=== PATIENT | male | born 1970 | race Two or more races ===

== ENCOUNTER 2020-05-08 15:23 | Inpatient (IN) | payer MEDICAID ==
[~2020-05-08] VITALS: Ht 172.7 cm; Wt 72.4 kg
[~2020-05-08 15:23] MED LIST: HUMALOG; INSLANTI SC; Insulin Detemir SC; METF-371 PO; MULTTAB99 PO
[2020-05-08] MEDS ORDERED: PANTOPRAZOLE 40 MG/10 ML VIAL INJ IV ONE (15:30)
[2020-05-08] MEDS ORDERED: SODIUM CHLORIDE 0.9% 1,000 ML IV ONE ×2 (15:30)
[2020-05-08 15:55] LABS: Basophils # (auto) 0.1 10 ^3/uL (0-0.2); Basophils % (auto) 0.3 % (0.0-2.0); Eosinophils # (auto) 0 10 ^3/uL (0-0.8); Hematocrit 36.4 % (41.0-53.0); Hemoglobin 11.9 g/dL (13.5-17.5); Lymphocytes % (auto) 3.6 % (10.0-50.0); Mean Corpuscular Hemoglobin 31.1 pg (28.0-32.0); Mean Corpuscular Hgb Conc. 32.8 g/dL (32.0-36.0); Mean Corpuscular Volume 94.7 fL (80.0-100.0); Monocytes # (auto) 1.3 10 ^3/uL (0-1.3); Monocytes % (auto) 4.9 % (0.0-12.0); Neutrophils # (auto) 24.4 10 ^3/uL (1.6-8.6); Neutrophils % (auto) 91.2 % (37.0-80.0); Platelet Count (auto) 383 10^3/uL (140-450); Red Blood Cells 3.85 10^6/uL (4.5-5.90); Red Cell Distribution Width 13.8 % (11.8-14.3); White Blood Cell 26.8 10^3/uL (4.4-10.8)
[2020-05-08 16:15] LABS: Albumin 3.4 g/dL (3.4-5.0); Anion Gap 36 (5-15); Blood Alcohol < 3.0 mg/dL (0-5); Calcium 8.5 mg/dL (8.5-10.1); Carbon Dioxide 14 mmol/L (21-32); Chloride 77 mmol/L (98-107); Magnesium 2.8 mg/dL (1.6-2.6); Sodium 127 mmol/L (136-145)
[2020-05-08] MEDS ORDERED: PIPERACILLIN-TAZOB 3.375GM 100 ML IV ONE ×2 (16:15→17:00)
[2020-05-08 16:17] LABS: INR 0.99 (0.9-1.15); Partial Thromboplastin Time 23.9 sec (23.0-31.2)
[2020-05-08 16:23] LABS: Alanine Aminotransferase 31 U/L (16-61); Alkaline Phosphatase 104 U/L (45-117); Aspartate Aminotransferase 19 U/L (15-37); GFR African American 28 mL/min; GFR Non-African American 23 mL/min; Total Protein 6.8 g/dL (6.4-8.2)
[2020-05-08 16:36] LABS: Glucose 765 mg/dL (74-106); Potassium 5.6 mmol/L (3.5-5.1)
[2020-05-08 16:37] LABS: BUN/Creatinine Ratio 32.7; Blood Urea Nitrogen 101 mg/dL (7-18)
[2020-05-08] MEDS ORDERED: DEXTROSE (50%) 50ML SYRG IV ONE (16:45)
[2020-05-08] MEDS ORDERED: SODIUM BICARBONATE 8.4% INJ 50ML SYRINGE IV ONE ×2 (16:45→17:00)
[2020-05-08] MEDS ORDERED: DEXTROSE (50%) 50ML SYRG IV PRN ×2 (16:45→17:00)
[2020-05-08] MEDS ORDERED: SODIUM CHLORIDE 0.9% 1,000 ML IV SCH ×5 (16:45→22:45)
[2020-05-08] MEDS ORDERED: CALCIUM GLUC 4.65meq/50ml D5AE 50 ML IV ONE ×2 (16:45→17:00)
[2020-05-08] MEDS ORDERED: InsuLIN REG 1unit/0.01ml Soln (100units/ml) IV ONE (16:45)
[2020-05-08] MEDS ORDERED: ALBUTEROL SULF 2.5 MG/0.5ML(0.5%) NEB SOLN NEB ONE ×2 (16:45→17:00)
[2020-05-08] MEDS ORDERED: SODIUM ZIRCONIUM CYCL 10 GM PAK PO ONE ×2 (16:45→17:00)
[2020-05-08] MEDS ORDERED: INSULIN LANTUS (GLARGINE) 1 /0.01ml (100units/ml) SC ONE ×2 (16:45→17:00)
[2020-05-08] MEDS ORDERED: InsuLIN R (HUMAN) 100 UNITS in SODIUM CHL 0.9% 99 ML IV SCH ×2 (16:45→17:00)
[2020-05-08] MEDS ORDERED: FUROSEMIDE 20 MG/2 ML VIAL IV ONE (16:45)
[2020-05-08] MEDS ORDERED: TEMAZEPAM 15 MG CAP PO PRN (17:00)
[2020-05-08] MEDS ORDERED: ONDANSETRON HCL 4 MG/2 ML VIAL IV PRN (17:00)
[2020-05-08] MEDS ORDERED: DOCUSATE SOD 100 MG CAP PO PRN (17:00)
[2020-05-08] MEDS ORDERED: NITROGLYCERIN 0.4 MG SL TAB SL PRN ×2 (17:00→19:30)
[2020-05-08] MEDS ORDERED: MORPHINE SULF INJ 2 MG/ML SYRINGE 1ML IV PRN ×3 (17:00→19:30)
[2020-05-08] MEDS: SODIUM CHLORIDE 0.9% 1,000 ML IV SCH ×3 (17:22→23:12)
[2020-05-08 17:32] LABS: Calcium 8.4 mg/dL (8.5-10.1); Magnesium 2.4 mg/dL (1.6-2.6)
[2020-05-08 17:34] LABS: Lactic Acid w/Reflex 2.4 mmol/L (0.4-2.0)
[2020-05-08 17:41] LABS: BUN/Creatinine Ratio 35.1; Phosphorus 6.5 mg/dL (2.5-4.90)
[2020-05-08] MEDS ORDERED: ACCU-CHEK COMFORT CURVE STRIP VI SCH (18:00)
[2020-05-08] MEDS: ACCU-CHEK COMFORT CURVE STRIP VI SCH ×4 (18:04→22:40)
[2020-05-08 18:09] LABS: Potassium 6.6 mmol/L (3.5-5.1)
[2020-05-08] MEDS ORDERED: SODIUM BICARBONATE 8.4 % INJ 50ML VIAL IV ONE (18:45)
[2020-05-08 19:01] LABS: Urine Bacteria NONE SEEN /hpf (None Seen); Urine Blood Negative /uL (Negative); Urine Hyaline Cast FEW /lpf (0 - 2); Urine Specific Gravity 1.014 (1.001-1.035); Urine WBC <1 /hpf (0 - 3)
[2020-05-08 19:19] LABS: Alcohol, Urine < 3.0 mg/dL (0-10); Amphetamine Screen, Urine NEGATIVE (NEGATIVE); Barbiturate Scree,Urine NEGATIVE (NEGATIVE); Benzodiazephine Screen, Urine NEGATIVE (NEGATIVE); Cannabinoid Screen, Urine NEGATIVE (NEGATIVE); Cocaine Screen, Urine NEGATIVE (NEGATIVE); Opiate Scree,Urine NEGATIVE (NEGATIVE); Phencyclidine Screen, Urine NEGATIVE (NEGATIVE)
[2020-05-08] MEDS ORDERED: METOCLOPRAMIDE HCL 5MG/ml INJ 2ml VIAL IV PRN (19:30)
[2020-05-08] MEDS ORDERED: ACETAMINOPHEN 325 MG TAB PO PRN (19:30)
[2020-05-08] MEDS ORDERED: dilTIAZem 125mg/125ml BAG KIT 125 ML IV SCH (19:30)
[2020-05-08] MEDS ORDERED: ALUM & MAG HYDROX-SIMETH LIQ(MAALOX) 30 ML PO PRN (19:30)
[2020-05-08] MEDS: ASCORBIC ACID 500 MG TAB PO SCH (21:55)
[2020-05-08] MEDS: PANTOPRAZOLE 40 MG/10 ML VIAL INJ IV SCH (21:55)
[2020-05-08] MEDS ORDERED: FAMOTIDINE 20 MG TAB PO SCH (22:00)
[2020-05-08 22:55] LABS: Calcium 7.6 mg/dL (8.5-10.1); Potassium 3.5 mmol/L (3.5-5.1)
[2020-05-08 23:15] LABS: BUN/Creatinine Ratio 36.6
[2020-05-09] MEDS: ACCU-CHEK COMFORT CURVE STRIP VI SCH ×11 (00:19→18:16)
[2020-05-09] MEDS: PIPERACILLIN-TAZOB 2.25GM 50 ML IV SCH ×4 (00:55→18:26)
[2020-05-09 06:30] LABS: Basophils # (auto) 0 10 ^3/uL (0-0.2); Basophils % (auto) 0.1 % (0.0-2.0); Eosinophils # (auto) 0 10 ^3/uL (0-0.8); Hematocrit 27.2 % (41.0-53.0); Hemoglobin 9.6 g/dL (13.5-17.5); Lymphocytes # (auto) 0.9 10 ^3/uL (0.4-5.4); Lymphocytes % (auto) 3.7 % (10.0-50.0); Mean Corpuscular Hemoglobin 31.8 pg (28.0-32.0); Mean Corpuscular Hgb Conc. 35.5 g/dL (32.0-36.0); Mean Corpuscular Volume 89.5 fL (80.0-100.0); Monocytes # (auto) 2.5 10 ^3/uL (0-1.3); Monocytes % (auto) 10.1 % (0.0-12.0); Neutrophils # (auto) 21.3 10 ^3/uL (1.6-8.6); Neutrophils % (auto) 86.1 % (37.0-80.0); Platelet Count (auto) 276 10^3/uL (140-450); Red Blood Cells 3.04 10^6/uL (4.5-5.90); Red Cell Distribution Width 13.3 % (11.8-14.3); White Blood Cell 24.8 10^3/uL (4.4-10.8)
[2020-05-09 06:46] LABS: BUN/Creatinine Ratio 39.4; Calcium 7.5 mg/dL (8.5-10.1)
[2020-05-09 06:49] LABS: Bilirubin, Total 0.4 mg/dL (0.2-1.0); Total Protein 5.5 g/dL (6.4-8.2)
[2020-05-09 06:51] LABS: Cholesterol 113 mg/dL (< 200)
[2020-05-09 06:53] LABS: HDL Cholesterol 42 mg/dL (40-59); LDL Cholesterol 56 mg/dL (< 100); Triglycerides 131 mg/dL (< 150)
[2020-05-09] MEDS: SODIUM CHLORIDE 0.9% 1,000 ML IV SCH (07:06)
[2020-05-09] MEDS ORDERED: DEXTROSE (50%) 50ML SYRG IV PRN (08:00)
[2020-05-09] MEDS ORDERED: InsuLIN REG 1unit/0.01ml Soln (100units/ml) SC SCH (08:00)
[2020-05-09] MEDS: METOPROLOL TARTRATE 25 MG TAB PO SCH ×3 (09:29→21:42)
[2020-05-09] MEDS ORDERED: SOD CHL 0.45% 1,000 ML IV SCH (09:30)
[2020-05-09] MEDS: POTASSIUM CHL 20MEQ/100ML 100 ML IV SCH ×2 (09:30→12:32)
[2020-05-09] MEDS: ASCORBIC ACID 500 MG TAB PO SCH (09:37)
[2020-05-09] MEDS: PANTOPRAZOLE 40 MG/10 ML VIAL INJ IV SCH ×2 (09:37→21:42)
[2020-05-09] MEDS ORDERED: ZINC SULFATE 220mg CAP or TAB PO SCH (10:00)
[2020-05-09] MEDS ORDERED: INSULIN LANTUS (GLARGINE) 1 /0.01ml (100units/ml) SC SCH ×2 (10:00)
[2020-05-09 10:55] VITALS: BP 128/84
[2020-05-09 13:00] VITALS: BP 115/66
[2020-05-09 13:29] LABS: Potassium 3.5 mmol/L (3.5-5.1)
[2020-05-09 13:35] LABS: BUN/Creatinine Ratio 37.4; Calcium 7.4 mg/dL (8.5-10.1)
[2020-05-09] MEDS: SOD CHL 0.9%/ KCL 20MEQ 1,000 ML IV SCH (14:47)
[2020-05-09 17:00] VITALS: BP 129/65
[2020-05-09] MEDS: InsuLIN REG 1unit/0.01ml Soln (100units/ml) SC SCH (18:18)
[2020-05-09 19:28] LABS: BUN/Creatinine Ratio 29.9; Calcium 7.3 mg/dL (8.5-10.1); Potassium 3.5 mmol/L (3.5-5.1)
[2020-05-09] MEDS: INSULIN LANTUS (GLARGINE) 1 /0.01ml (100units/ml) SC SCH (21:59)
[2020-05-09] MEDS: HYDROcodone-ACET 5/325MG TAB PO PRN (21:59)
[2020-05-09 22:00] VITALS: BP 102/55
[2020-05-10] MEDS: SOD CHL 0.9%/ KCL 20MEQ 1,000 ML IV SCH ×2 (00:30→11:56)
[2020-05-10 05:00] VITALS: BP 110/65
[2020-05-10] MEDS: InsuLIN REG 1unit/0.01ml Soln (100units/ml) SC SCH ×3 (06:00→11:56)
[2020-05-10] MEDS: ACCU-CHEK COMFORT CURVE STRIP VI SCH ×3 (06:22→11:57)
[2020-05-10] MEDS: PIPERACILLIN-TAZOB 2.25GM 50 ML IV SCH ×3 (06:23→11:56)
[2020-05-10 06:32] LABS: Basophils # (auto) 0 10 ^3/uL (0-0.2); Basophils % (auto) 0.1 % (0.0-2.0); Eosinophils # (auto) 0 10 ^3/uL (0-0.8); Lymphocytes # (auto) 1.5 10 ^3/uL (0.4-5.4); Monocytes # (auto) 1.1 10 ^3/uL (0-1.3); Neutrophils # (auto) 8.7 10 ^3/uL (1.6-8.6); Nucleated Red Blood Cells % 0.1 %
[2020-05-10 06:37] LABS: Eosinophils % (auto) 0.1 % (0.0-7.0); Hematocrit 23.3 % (41.0-53.0); Hemoglobin 8.4 g/dL (13.5-17.5); Lymphocytes % (auto) 13.1 % (10.0-50.0); Mean Corpuscular Hemoglobin 32.7 pg (28.0-32.0); Mean Corpuscular Hgb Conc. 36.1 g/dL (32.0-36.0); Mean Corpuscular Volume 90.8 fL (80.0-100.0); Monocytes % (auto) 9.4 % (0.0-12.0); Neutrophils % (auto) 77.3 % (37.0-80.0); Platelet Count (auto) 214 10^3/uL (140-450); Red Blood Cells 2.56 10^6/uL (4.5-5.90); Red Cell Distribution Width 13.5 % (11.8-14.3); White Blood Cell 11.3 10^3/uL (4.4-10.8)
[2020-05-10 06:38] LABS: Calcium 7.8 mg/dL (8.5-10.1); Potassium 3.4 mmol/L (3.5-5.1)
[2020-05-10 06:39] LABS: INR 0.97 (0.9-1.15); Partial Thromboplastin Time 23.2 sec (23.0-31.2)
[2020-05-10 06:40] LABS: BUN/Creatinine Ratio 21.9
[2020-05-10 08:15] VITALS: BP 123/73
[2020-05-10 09:00] VITALS: BP 128/73
[2020-05-10] MEDS: INSULIN LANTUS (GLARGINE) 1 /0.01ml (100units/ml) SC SCH (10:00)
[2020-05-10] MEDS ORDERED: LIDOCAINE 2% (LOCAL ANESTH.) PF 5ml SDV ONE (10:38)
[2020-05-10] MEDS ORDERED: PROPOFOL 10 MG/ML 20 ML IV ONE (10:38)
[2020-05-10] MEDS ORDERED: HYDROmorphone HCL 2 MG/ML VL IV PRN (11:00)
[2020-05-10] MEDS ORDERED: hydrALAZINE HCL 20 MG/ML VL IV PRN (11:00)
[2020-05-10] MEDS ORDERED: LABETALOL HCL 5 MG/ML 4ML SYRINGE IV PRN (11:00)
[2020-05-10] MEDS ORDERED: ONDANSETRON HCL 4 MG/2 ML VIAL IV PRN (11:00)
[2020-05-10] MEDS: METOPROLOL TARTRATE 25 MG TAB PO SCH (11:56)
[2020-05-10] MEDS: HYDROcodone-ACET 5/325MG TAB PO PRN (12:15)
[2020-05-10 13:00] VITALS: BP 122/75
[2020-05-10] MEDS ORDERED: INSLANTI SC (14:38)
[2020-05-10] MEDS ORDERED: INSREGI SC (14:38)
[2020-05-10] MEDS ORDERED: MET25T PO (14:38)
[2020-05-10] MEDS ORDERED: PANT40TA2 PO (14:39)
[2020-05-10 15:03] VITALS: BP 122/75
[2020-05-10 16:42] VITALS: BP 113/70
[2020-05-10] MEDS ORDERED: PANTOPRAZOLE 40 MG TAB PO SCH (22:00)
== END 2020-05-10 16:30 | disposition home health service (06) | DRG 241 ==
LOC: ER 15:23 → EDBD 15:23 → TELE 16:47 → TELE-WESTW 05-09 10:33
PROVIDERS: ADMIT Emergency Medicine; ATTEND Internal Medicine
PROC: 0DJ08ZZ Inspection of Upper Intestinal Tract, Via Natural or Artificial Opening Endoscopic (ICD-10-PCS; principal; 2020-05-10 10:29)
DX: K29.71 Gastritis, unspecified, with bleeding (principal); K20.91 Esophagitis, unspecified with bleeding; E11.10 Type 2 diabetes mellitus with ketoacidosis without coma; E87.5 Hyperkalemia; E78.5 Hyperlipidemia, unspecified; E83.39 Other disorders of phosphorus metabolism; E86.0 Dehydration; E87.0 Hyperosmolality and hypernatremia; E87.1 Hypo-osmolality and hyponatremia; E87.6 Hypokalemia; F15.10 Other stimulant abuse, uncomplicated; F17.210 Nicotine dependence, cigarettes, uncomplicated; K44.9 Diaphragmatic hernia without obstruction or gangrene; N17.9 Acute kidney failure, unspecified; R57.9 Shock, unspecified; Z79.4 Long term (current) use of insulin; Z82.49 Family history of ischemic heart disease and other diseases of the circulatory system; Z83.3 Family history of diabetes mellitus; Z86.39 Personal history of other endocrine, nutritional and metabolic disease; Z20.822 Contact with and (suspected) exposure to COVID-19; R65.10 Systemic inflammatory response syndrome (SIRS) of non-infectious origin without acute organ dysfunction; I10 Essential (primary) hypertension
CPT/HCPCS: 36415; 36600; 43235; 71045; 74176; 80048; 80053; 80061; 80307; 80320; 81001; 82010; 82805; 82962; 83036; 83605; 83735; 83880; 83930; 84100; 84484; 85025; 85610; 85730; 86850; 86900; 86901; 87040; 87426; 93005; 93306; 94640; 96361; 96365; 96375; C9113; G0378; J0610; J1815; J2001; J2405; J2543; J2704; J3480

== ENCOUNTER 2023-07-12 11:09 | Inpatient (IN) | payer MEDICAID ==
[~2023-07-12] VITALS: Ht 175.3 cm; Wt 97.2 kg
[~2023-07-12 11:09] MED LIST changes: -HUMALOG; +INSREGI SC; -Insulin Detemir SC; +MET25T PO; -METF-371 PO; +PANT40TA2 PO
[2023-07-12] MEDS: SODIUM CHLORIDE 0.9% 1,000 ML IV ONE (11:30)
[2023-07-12] MEDS ORDERED: OCTREOTIDE ACETATE 500 MCG in SODIUM CHL 0.9% 99 ML IV SCH (11:30)
[2023-07-12] MEDS ORDERED: PANTOPRAZOLE 40mg/50ML NS AE 50 ML IV ONE (11:30)
[2023-07-12 11:46] LABS: Hematocrit 42.9 % (41.0-53.0); Hemoglobin 13.9 g/dL (13.5-17.5); Mean Corpuscular Hemoglobin 28.9 pg (28.0-32.0); Mean Corpuscular Hgb Conc. 32.5 g/dL (32.0-36.0); Red Blood Cells 4.82 10^6/uL (4.5-5.90); Red Cell Distribution Width 13.6 % (11.8-14.3)
[2023-07-12 11:58] LABS: White Blood Cell 30.6 10^3/uL (4.4-10.8)
[2023-07-12 12:00] LABS: Basophils % (manual) 0 (0.0-2.0); Blast Cells 0; Eosinophils % (manual) 0 (0-7); INR 1.03 (0.9-1.15); Metamyelocytes % 0; Myelocytes % 0; Partial Thromboplastin Time 23.5 SEC (24.5-34.5); Promyelocytes % 0; Prothrombin Time 10.9 sec (9.3-11.8); Reactive Lymphocytes 0
[2023-07-12 12:05] LABS: Acetaminophen < 2.0 UG/ML (10.0-20.0); Alanine Aminotransferase 19 U/L (7-40); Alkaline Phosphatase 99 U/L (46-116); Anion Gap 16 (5-15); Aspartate Aminotransferase 23 U/L (13-40); BUN/Creatinine Ratio 12.1 (10.0-20.0); Blood Alcohol < 3.0 mg/dL (<10); Blood Urea Nitrogen 38 mg/dL (9-23); Calcium 10.3 mg/dL (8.5-10.1); Carbon Dioxide 21 mmol/L (20-30); Chloride 100 mmol/L (98-107); Glucose 133 mg/dL (74-106); Potassium 4.1 mmol/L (3.5-5.1); Sodium 137 mmol/L (136-145)
[2023-07-12 12:06] LABS: Bilirubin, Total 0.5 mg/dL (0.2-1.0); Salicylate < 3.0 mg/dL (2.8-20.0); Total Protein 7.7 g/dL (5.7-8.2)
[2023-07-12 12:13] LABS: Band Neutrophils % (manual) 1; Lymphocytes % (manual) 5 (10.0-50.0); Monocytes % (manual) 6 (0-12); Smudge Cells 2 /100 WBC
[2023-07-12 12:13] LABS: Base Excess -5.6 mmol/L (-2.0-2.0)
[2023-07-12 12:14] LABS: Giant Platelets Few; Platelet Estimate Adequate
[2023-07-12 12:36] LABS: Lipase 1446 U/L (12-53)
[2023-07-12 13:15] VITALS: PULSE 93; RESP 16; O2SAT 98
[2023-07-12] MEDS ORDERED: NITROGLYCERIN 0.4 MG SL TAB SL PRN (13:30)
[2023-07-12] MEDS: OCTREOTIDE ACETATE 500 MCG in SODIUM CHL 0.9% 99 ML IV SCH (13:30)
[2023-07-12] MEDS ORDERED: DEXTROSE (50%) 50ML SYRG IV PRN ×3 (13:30→17:15)
[2023-07-12] MEDS: ACCU-CHEK COMFORT CURVE STRIP VI SCH ×2 (13:30→18:00)
[2023-07-12] MEDS ORDERED: DOCUSATE SOD 100 MG CAP PO PRN (13:30)
[2023-07-12] MEDS ORDERED: ACCU-CHEK COMFORT CURVE STRIP VI SCH (13:30)
[2023-07-12] MEDS: ONDANSETRON HCL 4 MG/2 ML VIAL IV ONE (13:57)
[2023-07-12] MEDS: PANTOPRAZOLE 80 MG in SODIUM CHL 0.9% 100 ML IV ONE (13:57)
[2023-07-12] MEDS ORDERED: VANCOMYCIN PER PHARMACY 0 MG IV SCH (14:00)
[2023-07-12] MEDS ORDERED: CEFEPIME 2GM/50ML NS 50 ML IV SCH (14:00)
[2023-07-12 14:19] LABS: Phosphorus 3.2 mg/dL (2.4-5.1)
[2023-07-12] MEDS: OCTREOTIDE ACETATE 100 MCG in SODIUM CHL 0.9% 50 ML IV ONE (14:19)
[2023-07-12] MEDS: MORPHINE SULFATE INJ 2 MG/ml SYRG IV PRN (14:30)
[2023-07-12] MEDS: VANCOMYCIN 1GM/200ML 200 ML IV ONE (14:43)
[2023-07-12] MEDS: PANTOPRAZOLE 40mg/50ML NS AE 50 ML IV SCH (14:57)
[2023-07-12] MEDS: hydrALAZINE HCL 20 MG/ML VL IV ONE (15:16)
[2023-07-12 15:28] LABS: Chloride 99 mmol/L (98-107); Sodium 136 mmol/L (136-145)
[2023-07-12 15:29] LABS: Anion Gap 20 (5-15); Carbon Dioxide 17 mmol/L (20-30)
[2023-07-12 15:30] LABS: Calcium 10.2 mg/dL (8.7-10.4)
[2023-07-12 15:34] LABS: Glucose 136 mg/dL (74-106)
[2023-07-12 15:36] LABS: INR 1.04 (0.9-1.15)
[2023-07-12 15:41] LABS: Blood Urea Nitrogen 52 mg/dL (9-23)
[2023-07-12] MEDS: SODIUM CHLORIDE 0.9% 2,000 ML IV ONE (16:15)
[2023-07-12] MEDS: PIPERACILLIN-TAZO 4.5GM 100 ML IV ONE (16:44)
[2023-07-12] MEDS: SODIUM CHLORIDE 0.9% 1,000 ML IV SCH ×3 (17:30→19:30)
[2023-07-12] MEDS: INSULIN DRIP 100 UNIT/100ML 100 ML IV SCH (18:39)
[2023-07-12] MEDS: HYDROmorphone HCL 2 MG/ML VL/or syr IV ONE (18:40)
[2023-07-12] MEDS: LORazepam 2MG/ML-1ML VIAL IV ONE (18:55)
[2023-07-12] MEDS: METOCLOPRAMIDE HCL 5MG/ml INJ 2ml VIAL IV ONE (18:57)
[2023-07-12 18:59] LABS: Hematocrit 40.1 % (41.0-53.0); Hemoglobin 12.7 g/dL (13.5-17.5)
[2023-07-12 19:26] LABS: Chloride 101 mmol/L (98-107); Potassium 4.8 mmol/L (3.5-5.1); Sodium 134 mmol/L (136-145)
[2023-07-12 19:27] LABS: Anion Gap 21 (5-15); Calcium 8.8 mg/dL (8.5-10.1); Carbon Dioxide 12 mmol/L (20-30)
[2023-07-12 19:30] VITALS: PULSE 109; RESP 16; O2SAT 96
[2023-07-12 19:32] LABS: BUN/Creatinine Ratio 14.3 (10.0-20.0)
[2023-07-12 19:38] LABS: Blood Urea Nitrogen 39 mg/dL (9-23); Glucose 383 mg/dL (74-106)
[2023-07-12] MEDS ORDERED: PIPERACILLIN-TAZOB 3.375GM 100 ML IV SCH (22:00)
[2023-07-12] MEDS: hydrALAZINE HCL 20 MG/ML VL IV PRN (22:09)
[2023-07-12 22:47] LABS: Base Excess -6.7 mmol/L (-2.0-2.0)
[2023-07-12 23:25] LABS: Urine Bacteria None Seen /hpf (None Seen)
[2023-07-12 23:42] LABS: Urine Blood Negative /uL (Negative); Urine Clarity Clear (Clear); Urine Color Light-Yellow (Yellow); Urine Mucus FEW (None Seen); Urine Protein, UAD TRACE (Negative); Urine Specific Gravity 1.022 (1.001-1.035); Urine Urobilinogen Normal (Negative); Urine WBC 1 /hpf (0 - 3)
[2023-07-12] MEDS: CEFEPIME 2GM/50ML NS 50 ML IV SCH (23:42)
[2023-07-13] VITALS (14 sets, daily range): BP systolic 148–173; BP diastolic 85–111; PULSE 91–106; RESP 12–21; TEMP 97.2–99.2; O2SAT 94–100
[2023-07-13] MEDS: METOCLOPRAMIDE HCL 5MG/ml INJ 2ml VIAL IV SCH
[2023-07-13 00:24] LABS: Hematocrit 38.6 % (41.0-53.0); Hemoglobin 12.7 g/dL (13.5-17.5)
[2023-07-13] MEDS ORDERED: LORazepam 2MG/ML-1ML VIAL IV PRN (00:30)
[2023-07-13 01:31] LABS: Protein, Urine 27.7 mg/dL (0.0-11.9)
[2023-07-13 01:32] LABS: Amphetamine Screen, Urine Neg (NEGATIVE); Barbiturate Scree,Urine Neg (NEGATIVE); Benzodiazephine Screen, Urine Neg (NEGATIVE); Cocaine Screen, Urine Neg (NEGATIVE); Opiate Scree,Urine Neg (NEGATIVE)
[2023-07-13 01:33] LABS: Cannabinoid Screen, Urine Pos (NEGATIVE); Creatinine, Urine 78.82 mg/dL (30.0-125.0); Phencyclidine Screen, Urine Neg (NEGATIVE)
[2023-07-13 01:39] LABS: Chloride 108 mmol/L (98-107); Potassium 4.2 mmol/L (3.5-5.1); Sodium 138 mmol/L (136-145)
[2023-07-13 01:40] LABS: Anion Gap 11 (5-15); Calcium 8.2 mg/dL (8.7-10.4); Carbon Dioxide 19 mmol/L (20-30)
[2023-07-13 01:45] LABS: BUN/Creatinine Ratio 15.7 (10.0-20.0); Blood Urea Nitrogen 31 mg/dL (9-23)
[2023-07-13 01:46] LABS: Glucose 195 mg/dL (74-106)
[2023-07-13 04:12] LABS: Basophils # (auto) 0.2 10 ^3/uL (0-0.2); Basophils % (auto) 0.8 % (0.0-2.0); Eosinophils # (auto) 0 10 ^3/uL (0-0.8); Eosinophils % (auto) 0.1 % (0.0-7.0); Hematocrit 37.6 % (41.0-53.0); Hemoglobin 12.4 g/dL (13.5-17.5); Lymphocytes # (auto) 0.5 10 ^3/uL (0.4-5.4); Lymphocytes % (auto) 2.3 % (10.0-50.0); Mean Corpuscular Hemoglobin 29.3 pg (28.0-32.0); Mean Corpuscular Hgb Conc. 33.1 g/dL (32.0-36.0); Mean Corpuscular Volume 88.6 fL (80.0-100.0); Monocytes # (auto) 1.2 10 ^3/uL (0-1.3); Monocytes % (auto) 5.3 % (0.0-12.0); Neutrophils # (auto) 21.3 10 ^3/uL (1.6-8.6); Neutrophils % (auto) 91.5 % (37.0-80.0); Red Blood Cells 4.24 10^6/uL (4.5-5.90); Red Cell Distribution Width 13.6 % (11.8-14.3); White Blood Cell 23.3 10^3/uL (4.4-10.8)
[2023-07-13] MEDS: ONDANSETRON HCL 4 MG/2 ML VIAL IV PRN (04:19)
[2023-07-13 04:36] LABS: Alanine Aminotransferase 17 U/L (7-40); Albumin 3.8 g/dL (3.2-4.8); Alkaline Phosphatase 84 U/L (46-116); Anion Gap 9 (5-15); Aspartate Aminotransferase 20 U/L (13-40); BUN/Creatinine Ratio 16.6 (10.0-20.0); Bilirubin, Total 0.4 mg/dL (0.2-1.0); Blood Urea Nitrogen 29 mg/dL (9-23); Calcium 8.3 mg/dL (8.7-10.4); Carbon Dioxide 21 mmol/L (20-30); Chloride 109 mmol/L (98-107); Glucose 173 mg/dL (74-106); Lipase 418 U/L (12-53); Sodium 139 mmol/L (136-145); Total Protein 6.2 g/dL (5.7-8.2)
[2023-07-13 07:27] LABS: Anion Gap 10 (5-15); Carbon Dioxide 24 mmol/L (20-30); Chloride 107 mmol/L (98-107); Potassium 4.2 mmol/L (3.5-5.1); Sodium 141 mmol/L (136-145)
[2023-07-13 07:28] LABS: Calcium 8.9 mg/dL (8.5-10.1)
[2023-07-13 07:33] LABS: Glucose 188 mg/dL (74-106)
[2023-07-13 07:34] LABS: BUN/Creatinine Ratio 15.3 (10.0-20.0); Blood Urea Nitrogen 27 mg/dL (9-23)
[2023-07-13 10:00] LABS: Hemoglobin 11.9 g/dL (13.5-17.5)
[2023-07-13] MEDS: HYDROmorphone HCL 2 MG/ML VL/or syr IV PRN (10:33)
[2023-07-13] MEDS: VANCOMYCIN 1GM/200ML 200 ML IV SCH (10:36)
[2023-07-13] MEDS ORDERED: D5W/SOD CHL 0.45% 1,000 ML IV SCH (13:15)
[2023-07-13] MEDS ORDERED: DEXTROSE (50%) 50ML SYRG IV PRN ×3 (13:15→16:15)
[2023-07-13] MEDS ORDERED: MIDAZOLAM HCL 2MG/2ML 2ml VIAL (1mg/ml) ONE (14:27)
[2023-07-13] MEDS ORDERED: PROPOFOL 10 MG/ML 20 ML IV ONE (14:39)
[2023-07-13] MEDS: ONDANSETRON HCL 4 MG/2 ML VIAL IV ONE (15:00)
[2023-07-13] MEDS: InsuLIN REG 1unit/0.01ml Soln (100units/ml) SC ONE (15:45)
[2023-07-13] MEDS: InsuLIN REG 1unit/0.01ml Soln (100units/ml) SC SCH (16:00)
[2023-07-13] MEDS: SOD CHL 0.45% 1,000 ML IV SCH (16:38)
[2023-07-13] MEDS: SUCRALFATE 1 GM/10 ML ORAL SUSP PO SCH (16:38)
[2023-07-13 16:48] LABS: Hemoglobin 12.5 g/dL (13.5-17.5)
[2023-07-13] MEDS ORDERED: ACCU-CHEK COMFORT CURVE STRIP VI SCH ×2 (17:00→18:00)
[2023-07-13] MEDS ORDERED: InsuLIN REG 1unit/0.01ml Soln (100units/ml) SC SCH ×3 (17:00→22:00)
[2023-07-13] MEDS: INSULIN LANTUS (GLARGINE) 1 /0.01ml (100units/ml) SC ONE (17:44)
[2023-07-13] MEDS: ACCU-CHEK COMFORT CURVE STRIP VI SCH (19:55)
[2023-07-13] MEDS: INSULIN LANTUS (GLARGINE) 1 /0.01ml (100units/ml) SC SCH (21:59)
[2023-07-13] MEDS: PANTOPRAZOLE 40 MG/10 ML VIAL INJ IV SCH (21:59)
[2023-07-13] MEDS ORDERED: INSULIN LANTUS (GLARGINE) 1 /0.01ml (100units/ml) SC SCH (22:00)
[2023-07-13 22:08] LABS: Hemoglobin 12.3 g/dL (13.5-17.5)
[2023-07-14] VITALS (9 sets, daily range): BP systolic 157–164; BP diastolic 85–89; PULSE 79–98; RESP 10–16; TEMP 98.4–99.1; O2SAT 95–98
[2023-07-14 05:16] LABS: Chloride 104 mmol/L (98-107); Potassium 3.5 mmol/L (3.5-5.1)
[2023-07-14 05:17] LABS: Anion Gap 6 (5-15); Calcium 8.3 mg/dL (8.7-10.4); Carbon Dioxide 25 mmol/L (20-30)
[2023-07-14 05:22] LABS: BUN/Creatinine Ratio 15.5 (10.0-20.0); Blood Urea Nitrogen 16 mg/dL (9-23); Glucose 161 mg/dL (74-106)
[2023-07-14 05:31] LABS: Sodium 135 mmol/L (136-145)
[2023-07-14] MEDS ORDERED: PANTOPRAZOLE 40 MG/10 ML VIAL INJ IV SCH (10:00)
[2023-07-14] MEDS ORDERED: PANT40TA2 PO ×2 (11:33→16:29)
[2023-07-14] MEDS ORDERED: SUCR1TAB31 OR (11:33)
[2023-07-14] MEDS ORDERED: HYDR-4902 PO (11:33)
[2023-07-14] MEDS ORDERED: OXCA600T3 PO (16:29)
[2023-07-14] MEDS ORDERED: FERR325T20 PO (16:29)
[2023-07-14] MEDS ORDERED: AMLO1TAB22 PO (16:29)
[2023-07-14] MEDS ORDERED: ASPI81CH59 PO (16:29)
[2023-07-14] MEDS ORDERED: FENO145T27 OR (16:29)
[2023-07-14] MEDS ORDERED: MIRT-94 PO (16:29)
[2023-07-14] MEDS ORDERED: SIMV20TA20 PO (16:29)
[2023-07-14] MEDS ORDERED: DOCU-94 PO (16:29)
[2023-07-14] MEDS ORDERED: QUET100T47 PO (16:29)
[2023-07-14] MEDS ORDERED: CYCL-839 PO (16:29)
[2023-07-14] MEDS ORDERED: GABA-339 PO (16:29)
[2023-07-14] MEDS: amLODIPine BESYLATE 5 MG TAB PO ONE (18:28)
[2023-07-14] MEDS: METOPROLOL TARTRATE 25 MG TAB PO ONE (18:28)
[2023-07-14] MEDS ORDERED: CEFEPIME 2GM/50ML NS 50 ML IV SCH (20:00)
[2023-07-14] MEDS ORDERED: METOPROLOL TARTRATE 25 MG TAB PO SCH (22:00)
[2023-07-15] MEDS ORDERED: amLODIPine BESYLATE 5 MG TAB PO SCH (10:00)
== END 2023-07-14 18:47 | disposition home or self-care (01) | DRG 282 ==
LOC: ER 11:09 → EDBD 11:09 → OVERFLOW 13:41 → DOU IN ICU 07-13 07:55 → TELE-EAST 07-14 08:49
PROVIDERS: ADMIT Nurse Practitioner Family; ATTEND Internal Medicine
PROC: 0DB68ZX Excision of Stomach, Via Natural or Artificial Opening Endoscopic, Diagnostic (ICD-10-PCS; 2023-07-13)
PROC: 0DB58ZX Excision of Esophagus, Via Natural or Artificial Opening Endoscopic, Diagnostic (ICD-10-PCS; 2023-07-13)
PROC: 0DB98ZX Excision of Duodenum, Via Natural or Artificial Opening Endoscopic, Diagnostic (ICD-10-PCS; principal; 2023-07-13 14:26)
DX: K85.90 Acute pancreatitis without necrosis or infection, unspecified (principal); N17.0 Acute kidney failure with tubular necrosis; K22.11 Ulcer of esophagus with bleeding; E11.10 Type 2 diabetes mellitus with ketoacidosis without coma; E11.22 Type 2 diabetes mellitus with diabetic chronic kidney disease; R65.10 Systemic inflammatory response syndrome (SIRS) of non-infectious origin without acute organ dysfunction; K29.71 Gastritis, unspecified, with bleeding; E86.0 Dehydration; F17.210 Nicotine dependence, cigarettes, uncomplicated; I12.9 Hypertensive chronic kidney disease with stage 1 through stage 4 chronic kidney disease, or unspecified chronic kidney disease; K31.9 Disease of stomach and duodenum, unspecified; K44.9 Diaphragmatic hernia without obstruction or gangrene; N18.31 Chronic kidney disease, stage 3a; Z96.41 Presence of insulin pump (external) (internal); Z82.49 Family history of ischemic heart disease and other diseases of the circulatory system; Z79.4 Long term (current) use of insulin
CPT/HCPCS: 36415; 36600; 70450; 71045; 74176; 80048; 80053; 80307; 80320; 80329; 81001; 82010; 82570; 82805; 82962; 83605; 83690; 83735; 83880; 83930; 84100; 84156; 84300; 84484; 85007; 85014; 85018; 85025; 85027; 85610; 85730; 86850; 86900; 86901; 87040; 87081; 93005; 99291; C9113; G0378; J0692; J1815; J2250; J2405; J2543; J2704

== ENCOUNTER 2023-11-15 12:23 | Inpatient (IN) | payer MEDICAID ==
[~2023-11-15] VITALS: Ht 175.3 cm; Wt 107.2 kg
[~2023-11-15 12:23] MED LIST changes: +AMLO1TAB22 PO; +ASPI81CH59 PO; +CYCL-839 PO; +DOCU-94 PO; +FENO145T27 OR; +FERR325T20 PO; +GABA-339 PO; +HYDR-4902 PO; +MIRT-94 PO; +OXCA600T3 PO; +QUET100T47 PO; +SIMV20TA20 PO; +SUCR1TAB31 OR
[2023-11-15 14:09] LABS: Alanine Aminotransferase 17 U/L (7-40); Albumin 4.7 g/dL (3.2-4.8); Alkaline Phosphatase 135 U/L (46-116); Anion Gap 8 (5-15); Aspartate Aminotransferase 11 U/L (13-40); BUN/Creatinine Ratio 14.9 (10.0-20.0); Blood Urea Nitrogen 20 mg/dL (9-23); Calcium 9.6 mg/dL (8.7-10.4); Carbon Dioxide 27 mmol/L (20-30); Chloride 99 mmol/L (98-107); Glucose 342 mg/dL (74-106); Potassium 4.8 mmol/L (3.5-5.1); Sodium 134 mmol/L (136-145)
[2023-11-15 14:10] LABS: Bilirubin, Total 0.3 mg/dL (0.2-1.0)
[2023-11-15 14:17] LABS: CRP High Sensitivity 4.88 mg/dL (<1.0)
[2023-11-15 14:30] LABS: Erythrocyte Sedimentation Rate 19 mm/hr (0-20)
[2023-11-15 14:57] LABS: Basophils # (auto) 0 10 ^3/uL (0-0.2); Basophils % (auto) 0.4 % (0.0-2.0); Eosinophils # (auto) 0.1 10 ^3/uL (0-0.8); Eosinophils % (auto) 0.7 % (0.0-7.0); Hematocrit 43.2 % (41.0-53.0); Hemoglobin 14.7 g/dL (13.5-17.5); Lymphocytes # (auto) 1.2 10 ^3/uL (0.4-5.4); Lymphocytes % (auto) 9.8 % (10.0-50.0); Mean Corpuscular Hemoglobin 30.4 pg (28.0-32.0); Mean Corpuscular Hgb Conc. 34.1 g/dL (32.0-36.0); Mean Corpuscular Volume 89.2 fL (80.0-100.0); Monocytes % (auto) 8.4 % (0.0-12.0); Neutrophils # (auto) 9.5 10 ^3/uL (1.6-8.6); Neutrophils % (auto) 80.7 % (37.0-80.0); Nucleated Red Blood Cells % 0.1 %; Platelet Count (auto) 393 10^3/uL (140-450); Red Blood Cells 4.85 10^6/uL (4.5-5.90); Red Cell Distribution Width 13.3 % (11.8-14.3); White Blood Cell 11.8 10^3/uL (4.4-10.8)
[2023-11-15] MEDS ORDERED: VANCOMYCIN PER PHARMACY 0 MG IV SCH ×2 (15:00→19:15)
[2023-11-15] MEDS: PIPERACILLIN-TAZOB 3.375GM 100 ML IV ONE (15:00)
[2023-11-15] MEDS: VANCOMYCIN 1GM/200ML 200 ML IV SCH (18:01)
[2023-11-15] MEDS: HYDROcodone-ACET 5/325MG TAB PO ONE (18:27)
[2023-11-15] MEDS ORDERED: ACETAMINOPHEN 325 MG TAB PO PRN (19:15)
[2023-11-15] MEDS ORDERED: NITROGLYCERIN 0.4 MG SL TAB SL PRN (19:15)
[2023-11-15] MEDS ORDERED: ONDANSETRON HCL 4 MG/2 ML VIAL IV PRN (19:15)
[2023-11-15] MEDS ORDERED: DEXTROSE (50%) 50ML SYRG IV PRN (19:15)
[2023-11-15] MEDS ORDERED: hydrALAZINE HCL 20 MG/ML VL IV PRN (19:15)
[2023-11-15] MEDS ORDERED: MORPHINE SULFATE INJ 2 MG/ml SYRG IV PRN (19:15)
[2023-11-15] MEDS ORDERED: VANCOMYCIN 1GM/200ML 200 ML IV SCH (20:00)
[2023-11-15] MEDS: InsuLIN REG 1unit/0.01ml Soln (100units/ml) SC SCH (20:00)
[2023-11-15] MEDS: SODIUM CHLORIDE 0.9% 1,000 ML IV SCH (20:07)
[2023-11-15] MEDS: ACCU-CHEK COMFORT CURVE STRIP VI SCH (20:10)
[2023-11-15] MEDS: amLODIPine BESYLATE 5 MG TAB PO ONE (20:14)
[2023-11-15 20:20] VITALS: PULSE 88; RESP 16; O2SAT 95
[2023-11-15] MEDS: ASCORBIC ACID 500 MG TAB PO SCH (22:17)
[2023-11-15] MEDS: ATORVASTATIN 20 MG TAB PO SCH (22:17)
[2023-11-15] MEDS: PIPERACILLIN-TAZOB 3.375GM 100 ML IV SCH (22:17)
[2023-11-16] VITALS (9 sets, daily range): BP systolic 137–164; BP diastolic 85–104; PULSE 77–88; RESP 16–22; TEMP 97.5–98.4; O2SAT 96–99
[2023-11-16] MEDS: MORPHINE SULFATE INJ 2 MG/ml SYRG IV PRN (01:59)
[2023-11-16] MEDS: VANCOMYCIN 1GM/200ML 200 ML IV SCH (05:36)
[2023-11-16 06:49] LABS: Basophils # (auto) 0.1 10 ^3/uL (0-0.2); Basophils % (auto) 0.8 % (0.0-2.0); Eosinophils # (auto) 0.2 10 ^3/uL (0-0.8); Eosinophils % (auto) 2.9 % (0.0-7.0); Hematocrit 39.8 % (41.0-53.0); Hemoglobin 13.6 g/dL (13.5-17.5); Lymphocytes # (auto) 1.3 10 ^3/uL (0.4-5.4); Lymphocytes % (auto) 17.7 % (10.0-50.0); Mean Corpuscular Hemoglobin 30.4 pg (28.0-32.0); Mean Corpuscular Hgb Conc. 34.2 g/dL (32.0-36.0); Mean Corpuscular Volume 88.7 fL (80.0-100.0); Monocytes # (auto) 0.9 10 ^3/uL (0-1.3); Monocytes % (auto) 12.6 % (0.0-12.0); Neutrophils # (auto) 4.7 10 ^3/uL (1.6-8.6); Platelet Count (auto) 350 10^3/uL (140-450); Red Blood Cells 4.49 10^6/uL (4.5-5.90); Red Cell Distribution Width 13.3 % (11.8-14.3); White Blood Cell 7.1 10^3/uL (4.4-10.8)
[2023-11-16 07:04] LABS: Alanine Aminotransferase 13 U/L (7-40); Alkaline Phosphatase 109 U/L (46-116); Anion Gap 5 (5-15); Blood Urea Nitrogen 16 mg/dL (9-23); Calcium 9.3 mg/dL (8.7-10.4); Carbon Dioxide 29 mmol/L (20-30); Chloride 102 mmol/L (98-107); Potassium 3.7 mmol/L (3.5-5.1); Sodium 136 mmol/L (136-145)
[2023-11-16 07:05] LABS: Albumin 4.1 g/dL (3.2-4.8); Aspartate Aminotransferase 10 U/L (13-40); Bilirubin, Total 0.3 mg/dL (0.2-1.0); Total Protein 6.5 g/dL (5.7-8.2)
[2023-11-16 07:08] LABS: Glucose 145 mg/dL (74-106)
[2023-11-16] MEDS ORDERED: ENOXAPARIN SOD 40 MG/0.4 ML SYRINGE SC SCH (10:00)
[2023-11-16] MEDS: amLODIPine BESYLATE 5 MG TAB PO SCH (11:12)
[2023-11-16] MEDS: HYDROcodone-ACET 5/325MG TAB PO PRN (11:13)
[2023-11-16] MEDS: ASPirin 81 mg TAB PO SCH (11:13)
[2023-11-16] MEDS: ZINC SULFATE 220mg CAP or TAB PO SCH (11:13)
[2023-11-16] MEDS: LOSARTAN POTASSIUM 25 MG TAB PO ONE (14:22)
[2023-11-16] MEDS: METOPROLOL TARTRATE 25 MG TAB PO ONE (14:22)
[2023-11-16] MEDS: CEFEPIME 1GM/ 50ML 50 ML IV ONE (14:22)
[2023-11-16] MEDS: CEFEPIME 1GM/ 50ML 50 ML IV SCH (21:41)
[2023-11-16] MEDS: METOPROLOL TARTRATE 25 MG TAB PO SCH (21:41)
[2023-11-16] MEDS: SODIUM CHLORIDE 0.9% 1,000 ML IV SCH (21:58)
[2023-11-16] MEDS ORDERED: CARVEDILOL 3.125 MG TAB PO SCH (22:00)
[2023-11-17] VITALS (8 sets, daily range): BP systolic 128–151; BP diastolic 81–95; PULSE 72–99; RESP 12–18; TEMP 97.7–98.3; O2SAT 92–100
[2023-11-17 05:38] LABS: Basophils # (auto) 0.1 10 ^3/uL (0-0.2); Eosinophils # (auto) 0.2 10 ^3/uL (0-0.8); Eosinophils % (auto) 2.4 % (0.0-7.0); Hematocrit 43.5 % (41.0-53.0); Hemoglobin 15.1 g/dL (13.5-17.5); Lymphocytes # (auto) 1.5 10 ^3/uL (0.4-5.4); Lymphocytes % (auto) 18.8 % (10.0-50.0); Mean Corpuscular Hemoglobin 30.7 pg (28.0-32.0); Mean Corpuscular Hgb Conc. 34.7 g/dL (32.0-36.0); Mean Corpuscular Volume 88.4 fL (80.0-100.0); Monocytes # (auto) 0.9 10 ^3/uL (0-1.3); Monocytes % (auto) 11.7 % (0.0-12.0); Neutrophils # (auto) 5.2 10 ^3/uL (1.6-8.6); Neutrophils % (auto) 66.1 % (37.0-80.0); Platelet Count (auto) 402 10^3/uL (140-450); Red Blood Cells 4.92 10^6/uL (4.5-5.90); Red Cell Distribution Width 13.2 % (11.8-14.3); White Blood Cell 7.8 10^3/uL (4.4-10.8)
[2023-11-17 05:50] LABS: Alanine Aminotransferase 15 U/L (7-40); Albumin 4.5 g/dL (3.2-4.8); Alkaline Phosphatase 123 U/L (46-116); Anion Gap 7 (5-15); Aspartate Aminotransferase 11 U/L (13-40); Blood Urea Nitrogen 16 mg/dL (9-23); Carbon Dioxide 26 mmol/L (20-30); Chloride 103 mmol/L (98-107); Cholesterol 170 mg/dL (< 200); Glucose 238 mg/dL (74-106); HDL Cholesterol 59 mg/dL (40-59); LDL Cholesterol 85 mg/dL (< 100); Potassium 4.6 mmol/L (3.5-5.1); Sodium 136 mmol/L (136-145); Triglycerides 218 mg/dL (< 150)
[2023-11-17 05:51] LABS: Bilirubin, Total 0.3 mg/dL (0.2-1.0); Total Protein 6.8 g/dL (5.7-8.2)
[2023-11-17 08:50] LABS: Hepatitis B Surface Antigen Negative (Negative)
[2023-11-17 09:12] LABS: Hepatitis C Antibody Negative (Negative)
[2023-11-17] MEDS ORDERED: LOSARTAN POTASSIUM 25 MG TAB PO SCH (10:00)
[2023-11-17] MEDS: GABAPENTIN 300 MG CAP PO ONE (10:31)
[2023-11-17 10:54] LABS: Urine Bacteria None Seen /hpf (None Seen)
[2023-11-17 11:33] LABS: Urine Blood Negative /uL (Negative); Urine Clarity Clear (Clear); Urine Color Light-Yellow (Yellow); Urine Protein, UAD Negative (Negative); Urine Specific Gravity 1.019 (1.001-1.035); Urine Urobilinogen Normal (Negative); Urine WBC <1 /hpf (0 - 3)
[2023-11-17 11:38] LABS: Protein, Urine 21.8 mg/dL (0.0-11.9)
[2023-11-17 11:40] LABS: Creatinine, Urine 72.1 mg/dL (30.0-125.0)
[2023-11-17] MEDS ORDERED: ONDANSETRON HCL 4 MG/2 ML VIAL ONE (13:40)
[2023-11-17] MEDS ORDERED: MIDAZOLAM HCL 2MG/2ML 2ml VIAL (1mg/ml) ONE (13:40)
[2023-11-17] MEDS ORDERED: fentaNYL CITRATE 100 MCG/2 ML VL ONE (13:40)
[2023-11-17] MEDS ORDERED: KETAMINE 50mg/ML 1ml syringe ONE (13:40)
[2023-11-17] MEDS ORDERED: LIDOCAINE 2% (LOCAL ANESTH.) PF 5ml SDV ONE (13:40)
[2023-11-17] MEDS ORDERED: PROPOFOL 10 MG/ML 20 ML IV ONE (13:41)
[2023-11-17] MEDS: BUPIVACAINE HCL 50 ML ONE (15:34)
[2023-11-17] MEDS: OXcarbazepine 300 MG TAB PO ONE (16:50)
[2023-11-17] MEDS: GABAPENTIN 300 MG CAP PO SCH (22:00)
[2023-11-17] MEDS: MIRTAZAPINE 30 MG TAB PO SCH (22:03)
[2023-11-17] MEDS: QUEtiapine FUMARATE 100 MG TAB PO SCH (22:05)
[2023-11-17] MEDS: OXcarbazepine 300 MG TAB PO SCH (22:12)
[2023-11-18] VITALS (7 sets, daily range): BP systolic 127–155; BP diastolic 80–111; PULSE 81–88; RESP 18–20; TEMP 98–98.2; O2SAT 95–98
[2023-11-18 07:01] LABS: Anion Gap 5 (5-15); Carbon Dioxide 26 mmol/L (20-30); Chloride 106 mmol/L (98-107); Potassium 4.2 mmol/L (3.5-5.1); Sodium 137 mmol/L (136-145)
[2023-11-18 07:02] LABS: Calcium 9.5 mg/dL (8.7-10.4)
[2023-11-18 07:07] LABS: BUN/Creatinine Ratio 11.6 (10.0-20.0); Blood Urea Nitrogen 19 mg/dL (9-23); Glucose 256 mg/dL (74-106)
[2023-11-18] MEDS: DOCUSATE SOD 100 MG CAP PO PRN (09:54)
[2023-11-19] VITALS (7 sets, daily range): BP systolic 123–157; BP diastolic 85–101; PULSE 68–101; RESP 14–18; TEMP 97.5–98.2; O2SAT 95–98
[2023-11-19 09:59] LABS: Potassium 4.6 mmol/L (3.5-5.1); Sodium 136 mmol/L (136-145)
[2023-11-19 10:00] LABS: Carbon Dioxide 28 mmol/L (20-30)
[2023-11-19 10:01] LABS: Calcium 9.1 mg/dL (8.7-10.4)
[2023-11-19 10:05] LABS: BUN/Creatinine Ratio 11.9 (10.0-20.0); Blood Urea Nitrogen 19 mg/dL (9-23); Glucose 272 mg/dL (74-106)
[2023-11-19 10:45] LABS: Anion Gap 5 (5-15); Chloride 103 mmol/L (98-107)
[2023-11-20] VITALS (8 sets, daily range): BP systolic 125–157; BP diastolic 81–97; PULSE 70–91; RESP 18–24; TEMP 97.5–98.1; O2SAT 92–98
[2023-11-20] MEDS: VANCOMYCIN 1GM/200ML 200 ML IV SCH (14:29)
[2023-11-21] VITALS (8 sets, daily range): BP systolic 127–147; BP diastolic 80–94; PULSE 69–86; RESP 16–20; TEMP 97.9–98.4; O2SAT 95–99
[2023-11-21] MEDS: BUPIVACAINE 0.5% P/F INJ 10 ML VIAL ONE (09:16)
[2023-11-21] MEDS: D5W/SOD CHLO 0.9% 1,000 ML IV SCH (09:33)
[2023-11-21] MEDS: ceFAZolin 2 GM/D5W100ml 100 ML IV ONE (11:00)
[2023-11-21] MEDS ORDERED: KETAMINE 50mg/ML 1ml syringe ONE (11:07)
[2023-11-21] MEDS ORDERED: MIDAZOLAM HCL 2MG/2ML 2ml VIAL (1mg/ml) ONE (11:07)
[2023-11-21] MEDS ORDERED: fentaNYL CITRATE 100 MCG/2 ML VL ONE (11:07)
[2023-11-21] MEDS ORDERED: ONDANSETRON HCL 4 MG/2 ML VIAL ONE (11:08)
[2023-11-21] MEDS ORDERED: LIDOCAINE 2% (LOCAL ANESTH.) PF 5ml SDV ONE (11:08)
[2023-11-21] MEDS ORDERED: PROPOFOL 10 MG/ML 20 ML IV ONE (11:09)
[2023-11-21] MEDS: BUPIVACAINE 0.5% MPF INJ 30ML SDV IJ ONE (11:20)
[2023-11-21] MEDS: ONDANSETRON HCL 4 MG/2 ML VIAL IV ONE (11:45)
[2023-11-22 01:00] VITALS: BP 120/77; PULSE 71; RESP 19; TEMP 97.8; O2SAT 96
[2023-11-22 05:00] VITALS: BP 107/63; PULSE 68; RESP 19; TEMP 98.1; O2SAT 99
[2023-11-22 07:38] LABS: Alanine Aminotransferase 16 U/L (7-40); Alkaline Phosphatase 99 U/L (46-116); Anion Gap 11 (5-15); BUN/Creatinine Ratio 10.6 (10.0-20.0); Blood Urea Nitrogen 15 mg/dL (9-23); Calcium 9.1 mg/dL (8.7-10.4); Carbon Dioxide 22 mmol/L (20-30); Chloride 103 mmol/L (98-107); Glucose 317 mg/dL (74-106); Potassium 4.1 mmol/L (3.5-5.1); Sodium 136 mmol/L (136-145)
[2023-11-22 07:39] LABS: Magnesium 2.2 mg/dL (1.6-2.6)
[2023-11-22 07:40] LABS: Aspartate Aminotransferase 16 U/L (13-40)
[2023-11-22 07:41] LABS: Bilirubin, Total 0.3 mg/dL (0.2-1.0); Total Protein 6.3 g/dL (5.7-8.2)
[2023-11-22 07:44] LABS: Basophils # (auto) 0.1 10 ^3/uL (0-0.2); Basophils % (auto) 1.2 % (0.0-2.0); Eosinophils # (auto) 0.1 10 ^3/uL (0-0.8); Eosinophils % (auto) 1.9 % (0.0-7.0); Hematocrit 37.5 % (41.0-53.0); Hemoglobin 13.2 g/dL (13.5-17.5); Lymphocytes # (auto) 1.8 10 ^3/uL (0.4-5.4); Lymphocytes % (auto) 25.3 % (10.0-50.0); Mean Corpuscular Hemoglobin 31.3 pg (28.0-32.0); Mean Corpuscular Hgb Conc. 35.3 g/dL (32.0-36.0); Mean Corpuscular Volume 88.6 fL (80.0-100.0); Monocytes # (auto) 0.8 10 ^3/uL (0-1.3); Neutrophils # (auto) 4.3 10 ^3/uL (1.6-8.6); Neutrophils % (auto) 60.6 % (37.0-80.0); Platelet Count (auto) 345 10^3/uL (140-450); Red Blood Cells 4.24 10^6/uL (4.5-5.90); Red Cell Distribution Width 13.2 % (11.8-14.3); White Blood Cell 7.2 10^3/uL (4.4-10.8)
[2023-11-22 08:00] VITALS: PULSE 72
[2023-11-22 08:04] VITALS: PULSE 86; RESP 20; O2SAT 96
[2023-11-22 08:35] VITALS: BP 147/96; PULSE 73; RESP 20; TEMP 97.7; O2SAT 97
[2023-11-22] MEDS ORDERED: AUG875T PO (09:07)
[2023-11-22] MEDS ORDERED: DOXY1CAP57 PO (09:07)
[2023-11-22 09:31] VITALS: BP 118/72; PULSE 81; TEMP 36.7
== END 2023-11-22 10:30 | disposition home or self-care (01) | DRG 380 ==
LOC: ER 12:23 → OVERFLOW 19:08 → EAST 11-16 01:03 → TELE-E-ADS 11-17 16:06
PROVIDERS: ADMIT Nurse Practitioner Family; ATTEND Internal Medicine Geriatric Medicine
PROC: 0Y9L0ZZ Drainage of Left Ankle Region, Open Approach (ICD-10-PCS; principal; 2023-11-17 13:38)
PROC: 0Y9N0ZZ Drainage of Left Foot, Open Approach (ICD-10-PCS; 2023-11-21)
DX: E11.621 Type 2 diabetes mellitus with foot ulcer (principal); L97.529 Non-pressure chronic ulcer of other part of left foot with unspecified severity; N17.0 Acute kidney failure with tubular necrosis; E11.22 Type 2 diabetes mellitus with diabetic chronic kidney disease; L03.116 Cellulitis of left lower limb; D72.829 Elevated white blood cell count, unspecified; L02.612 Cutaneous abscess of left foot; N18.31 Chronic kidney disease, stage 3a; E78.5 Hyperlipidemia, unspecified; I12.9 Hypertensive chronic kidney disease with stage 1 through stage 4 chronic kidney disease, or unspecified chronic kidney disease; E11.65 Type 2 diabetes mellitus with hyperglycemia; Z79.891 Long term (current) use of opiate analgesic; Z79.899 Other long term (current) drug therapy; Z79.82 Long term (current) use of aspirin; Z79.4 Long term (current) use of insulin; Z82.49 Family history of ischemic heart disease and other diseases of the circulatory system
CPT/HCPCS: 36415; 73630; 73718; 76775; 80048; 80053; 80061; 80202; 81001; 82565; 82570; 82962; 83605; 83735; 84156; 85025; 85652; 86141; 86803; 87070; 87075; 87205; 87340; 93971; 96365; 96366; 96367; G0378; J1815; J2001; J2250; J2405; J2543; J2704; J3490